=== PATIENT | female | born 1965 | race Caucasian/White ===

== ENCOUNTER 2018-08-13 07:50 | Observation (INO) | payer OTHER ==
[2018-08-10 10:46] LABS: BASOPHILS % 0.6 % (0.0-1.0); EOSINOPHILS # (AUTO) 0.5 (0.0-0.4); HEMATOCRIT 37.2 % (34.2-44.1); HEMOGLOBIN 10.8 g/dL (12.0-16.0); LYMPHOCYTES # (AUTO) 0.8 (1.0-3.2); MEAN CORPUSCULAR HEMOGLOBIN 23.2 pg (28-32); MONOCYTES # (AUTO) 0.4 (0.2-0.8); MONOCYTES % 8.9 % (4.4-11.3); NEUTROPHILS # (AUTO) 2.8 (2.1-6.9); NEUTROPHILS % 61.3 % (38.7-80.0); PLATELET COUNT 295 x10e3/uL (140-360); RED BLOOD COUNT 4.65 x10e6/uL (3.6-5.1); RED CELL DISTRIBUTION WIDTH 16.3 % (11.7-14.4)
[2018-08-10 11:06] LABS: BLOOD UREA NITROGEN 9 mg/dL (7-26); BUN/CREATININE RATIO 15 (6-25); CARBON DIOXIDE 24 mmol/L (22-29); CHLORIDE 108 mmol/L (98-107); CREATININE, SERUM 0.59 mg/dL (0.57-1.11); EST GLOMERULAR FILTRATION RATE > 60 ML/MIN (60-); GLUCOSE 88 mg/dL (74-118); SODIUM 139 mmol/L (136-145)
[~2018-08-13] VITALS: Ht 160 cm; Wt 71.7 kg
[~2018-08-13 07:50] MED LIST: LEVOTHYROXINE50 MCG PO
[2018-08-13] MEDS ORDERED: CEFAZOLIN SOD 1 GM/NS 50ML 100 ML IV ONE (08:05)
[2018-08-13] MEDS ORDERED: ACETAMINOPHEN325 M1 PO (08:12)
[2018-08-13] MEDS ORDERED: MORPHINE SULFATE INJ 4 MG/ML INJ 1ML IV PRN (13:30)
[2018-08-13] MEDS ORDERED: ACETAMINOPHEN 325 MG TAB PO PRN (13:30)
[2018-08-13] MEDS ORDERED: HYDROMORPHONE 2MG/ML 2 MG/ML ML ONE (13:48)
[2018-08-13 15:15] VITALS: BP 137/70
--- NOTE | 2018-08-13 15:15 | NUR ---
Received patient from recovery. AAOX4 to time, person, place, situation. Respirations even and unlabored. Dressing to mid neck clean, dry, and intact. AWA drain to left neck draining sanguineous drainage. Instructed patient to use call light for assistance. Voiced understanding.
--- NOTE | 2018-08-13 16:00 | NUR ---
patient voided. Denies any discomfort
[2018-08-13] MEDS: ONDANSETRON HCL INJ 2MG/ML 2ML 2 MG/ML VIAL IV PRN ×2 (16:45→21:14)
[2018-08-13] MEDS: HYDROCODONE/APAP 5MG-325MG TAB PO PRN (16:45)
[2018-08-13 16:47] VITALS: BP 126/85
[2018-08-13] MEDS ORDERED: LIDOCAINE HCL 2% LOCAL INJ 5 ML SDV VIAL INJ ONE (17:30)
[2018-08-13] MEDS ORDERED: KETOROLAC TROMETHAMINE 30 MG/ML VIAL ONE (17:30)
[2018-08-13] MEDS ORDERED: PROPOFOL IV EMULSION 10 MG/ML 20 ML VIAL ONE (17:30)
[2018-08-13] MEDS ORDERED: SEVOFLURANE INHAL SOLN 250 ML PEN BTL ONE (17:30)
[2018-08-13] MEDS ORDERED: ROCURONIUM BROMIDE 10 MG/ML 5ML VIAL ONE (17:30)
[2018-08-13] MEDS ORDERED: DEXAMETHASONE SOD PHOS INJ 4 MG/ML VIAL ONE (17:30)
[2018-08-13] MEDS ORDERED: ONDANSETRON HCL INJ 2MG/ML 2ML 2 MG/ML VIAL ONE (17:30)
[2018-08-13] MEDS: SODIUM CHLORIDE 0.9% 1000ML 1,000 ML IV SCH (17:46)
[2018-08-13] MEDS ORDERED: MIDAZOLAM HCL 2 MG/2 ML VIAL ONE (17:55)
[2018-08-13] MEDS ORDERED: FENTANYL CITRATE/PF 100MCG/2 ML INJ ONE (17:55)
--- NOTE | 2018-08-13 18:15 | NUR ---
Report given to Jason RONDON of patient's status. Taken via stretcher to [facility] 177. AAOX4 to time, person, place, situation. Respirations even and unlabored. Dressing to neck clean, dry, and intact. All personal belongings taken with patient. Truty, [id number] aware of transfer.
[2018-08-13 18:29] VITALS: BP 148/72
--- NOTE | 2018-08-13 18:30 | NUR ---
patient received from pacu via stretcher. oriented to environment. vitals stable. pain at level 2. no distress.
[2018-08-13 19:42] VITALS: BP 131/70
[2018-08-13 20:00] VITALS: BP 131/70
--- NOTE | 2018-08-13 20:49 | Operative Report ---
DATE OF PROCEDURE: 08/13/2018 SURGEON: Dejan Mendoza MD PREOPERATIVE DIAGNOSIS: Carcinoma of the thyroid. POSTOPERATIVE DIAGNOSIS: Carcinoma of the thyroid. PROCEDURE: Total thyroidectomy. DIRECTOR VOICE: None. ANESTHESIA: General endotracheal. INDICATIONS AND FINDINGS: The patient is a 53-year-old female, who has a thyromegaly, developed a mass in the right upper thyroid. Biopsy reveals or papillary carcinoma. 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 The entire thyroid was very large with multiple nodules. There were no enlarged lymph nodes noted. TECHNIQUE: After adequate general endotracheal anesthesia, the patient was placed in supine position. The neck was prepped and draped in a sterile fashion with ChloraPrep solution. A transverse incision was made approximately 2 cm above the sternal notch, carried down to the subcutaneous tissue and platysma. Subplatysmal flaps were raised superiorly and inferiorly. Strap muscles were divided at the midline exposing the thyroid. Thyroid was very large and somewhat vascular. Strap muscles were dissected away from the right lobe of the thyroid. Right lobe of the thyroid was mobilized by dividing the middle thyroid vein. Superior lobe was extended very far laterally in the neck. As the vein was mobilized, recurrent laryngeal nerve was identified and preserved, also inferior parathyroid was identified and preserved. Vessels going to the thyroid were dissected free and divided between hemoclips. As the gland was mobilized from lateral to medial, care was taken not to injure the recurrent laryngeal nerve. Vessels were all divided with hemoclips. Superior pole of the vessels were dissected free as the gland was delivered up into the wound and the superior pole of the vessel was also divided with hemoclips. The superior parathyroid was also identified and preserved. The gland was dissected free from the trachea until entire right lobe was free all the way to the isthmus. The isthmus was then divided between clamps. The right lobe of the thyroid was submitted for frozen section, which confirmed papillary carcinoma. The left lobe was then removed. The left lobe also was mobilized by dividing the middle thyroid vein. Each vessels were dissected free and divided between hemoclips. Recurrent laryngeal nerve was identified and preserved. The inferior parathyroid on the left side was identified and preserved. The gland was dissected free as the inferior thyroid vessels were dissected free and divided between hemoclips. Superior pole was dissected free and superior pole vessels were also divided between hemoclips. Care was taken not to injure the recurrent laryngeal nerve on the left side, this was identified and preserved. Remaining vessels going into the thyroid were divided between hemoclips, lifting it off the trachea and the remaining thyroid vein was removed. Hemostasis was seen to be adequate. The wound was irrigated with saline and inspected for hemostasis, which was seen to be adequate. A 10 mm flat Teo-Young drain was placed into the wound through a separate stab wound incision. The wound was then closed. The strap muscles were reapproximated in the midline using 2-0 Vicryl. The platysma was closed with running suture of 3-0 Vicryl. Skin was closed with running subcuticular suture of 5-0 Vicryl. Steri-Strips and sterile dressing were applied. The patient tolerated the procedure well. Estimated blood loss was 25 mL. There were no complications. All counts were correct. The patient was taken to the recovery room in satisfactory condition. MD DANDRE CrenshawG/MODL /[id number] cc: Johnson Galo MD
[2018-08-14] VITALS: BP 108/58
[2018-08-14 04:00] VITALS: BP 117/67
[2018-08-14] MEDS: HYDROCODONE/APAP 5MG-325MG TAB PO PRN ×2 (04:40→09:02)
[2018-08-14] MEDS: SODIUM CHLORIDE 0.9% 1000ML 1,000 ML IV SCH (05:04)
[2018-08-14 05:53] LABS: ANION GAP 8.3 mmol/L (8-16); BLOOD UREA NITROGEN 7 mg/dL (7-26); BUN/CREATININE RATIO 13 (6-25); CALCIUM 7.7 mg/dL (8.4-10.2); CARBON DIOXIDE 25 mmol/L (22-29); CHLORIDE 110 mmol/L (98-107); CREATININE, SERUM 0.56 mg/dL (0.57-1.11); EST GLOMERULAR FILTRATION RATE > 60 ML/MIN (60-); GLUCOSE 100 mg/dL (74-118); POTASSIUM 4.3 mmol/L (3.5-5.1); SODIUM 139 mmol/L (136-145)
[2018-08-14] MEDS ORDERED: LEVOTHYROXINE SODIUM 50 MCG TAB PO SCH (06:00)
--- NOTE | 2018-08-14 06:26 | NUR ---
Report received and walking rounds complete. Pt resting in bed watching tv and in no apparent distress. Pt has neck dressing with AWA drain. Pt has minimal complaints of pain. All safety measures ensured, HOB at 45 degrees.
--- NOTE | 2018-08-14 07:06 | NUR ---
report given and walking rounds complete
[2018-08-14 07:49] VITALS: BP 127/59
--- NOTE | 2018-08-14 08:15 | NUR ---
patient resting in bed, Alert with no distress, call light in reach
[2018-08-14 09:35] VITALS: BP 127/59
[2018-08-14 11:29] VITALS: BP 106/55
[2018-08-14] MEDS ORDERED: DOCUSATE SODIUM 100 MG CAP PO PRN (12:15)
--- NOTE | 2018-08-14 13:55 | NUR ---
SOCIAL WORK INITIAL ASSESSMENT Converting Technician to bedside to discuss plan of care with patient/family. CM/SW role and care transitions discussed. Anticipated discharge plan discussed along with duration of care. CM/SW discussed patients right to make decisions in care. CM/SW work hours given. Patient lives: HOUSE WITH FAMILY Admit/Transfer: AED POA/Emergency contact: ANGELITA [phone] Current/Previous Home Health: NONE PCP/Follow-up Care: [facility] Current/Previous DME: NONE Other Services: NONE Employment Status: [employer]CR[employer] Areas of Concerns: NONE Referral Needs: NONE Education Needs: NONE IMM/VALERA given and signed (if applicable): NA Goal for discharge: RETURN HOME CM/SW left business card at the bedside with contact information. Name and number was also written on the patients whiteboard. Patient verbalized understanding of discussion. CM will follow-up with ongoing discharge and transition of care needs.
[2018-08-14 15:41] VITALS: BP 110/55
[2018-08-14] MEDS ORDERED: NORCO 5-325 TA1 EACH PO (16:23)
--- NOTE | 2018-08-14 16:30 | NUR ---
patient discharged home. educated about care of AWA drain patient verbalized understanding, incision site anterior neck dressin intact, no swelling or redness noted, prescription given, patient aware about f/up appointment, her in room giving ride, all personnel belongings taken by patient, transported via to [facility], IV canula removed with tip intact, no ss of infiltration noted
== END 2018-08-14 16:49 | disposition home or self-care (01) ==
LOC: OR 07:50 → PACU V 13:15 → UNDOADMOB 13:15 → PACU V 14:08 → IMCU 18:20
PROVIDERS: ADMIT Surgery; ATTEND Surgery
DX: C73 Malignant neoplasm of thyroid gland (principal); Z01.812 Encounter for preprocedural laboratory examination; E03.9 Hypothyroidism, unspecified; K58.9 Irritable bowel syndrome, unspecified
CPT/HCPCS: 36415 ×2; 60240; 80048 ×2; 81025; 82310; 82330; 85025; 88305; 88309; 88331; 93005; G0378 ×2; J0690; J1100; J1170; J1885; J2001; J2250; J2270; J2405; J2704; J7030 ×2; 88307

== ENCOUNTER → 2020-04-19 | Outpatient (CLI) | payer OTHER ==
[~2020-04-19] MED LIST changes: +ACETAMINOPHEN325 M1 PO; +NORCO 5-325 TA1 EACH PO
== END ==
LOC: MAMMO 11:44
PROVIDERS: ATTEND Family Medicine
DX: Z12.31 Encounter for screening mammogram for malignant neoplasm of breast (principal)
CPT/HCPCS: 77067